=== PATIENT | male | born 1955 | race Caucasian/White ===

== ENCOUNTER → 2020-12-14 | Outpatient (CLI) | payer BC, MEDICARE, OTHER | LOC: LABNPT 08:34 | PROVIDERS: ATTEND Internal Medicine | DX: Z20.822 Contact with and (suspected) exposure to COVID-19 (principal) | CPT/HCPCS: 87636 ==

== ENCOUNTER → 2022-05-03 | Outpatient (CLI) | payer MEDICARE, BC ==
--- NOTE | 2022-05-03 17:56 | Diagnostic Imaging Report ---
INDICATION: Back pain and bruising status post fall. COMPARISON: None. FINDINGS: Frontal and lateral radiographic views of the lumbar spine were obtained and show no evidence acute fracture or dislocation. Static alignment is maintained. There is no significant anterolisthesis or retrolisthesis. There is no evidence of jumped facets. Vertebral body heights are preserved. There is no acute fracture. Mild multilevel degenerative changes are noted and consistent intervertebral disc height loss with endplate osteophyte formations and multilevel facet arthropathy. These changes appear greatest the L4-L5 and L5-S1 levels. No unexpected radiopaque foreign bodies are seen. IMPRESSION: 1. No acute fracture or dislocation in the lumbar spine. 2. Mild multilevel degenerative changes. Dictated by: Dictated on workstation # [id number]
== END ==
LOC: RAD 15:30
PROVIDERS: ATTEND Physician Assistant
DX: M47.816 Spondylosis without myelopathy or radiculopathy, lumbar region (principal); T14.8XXA Other injury of unspecified body region, initial encounter; W19.XXXD Unspecified fall, subsequent encounter
CPT/HCPCS: 72100

== ENCOUNTER 2022-07-06 05:33 | Outpatient (CLI) | payer MEDICARE, BC ==
[~2022-07-06] VITALS: Ht 188 cm; Wt 101.5 kg
[2022-07-07] MEDS ORDERED: LEVO75CA5 PO (12:43)
== END 2022-07-07 12:49 | disposition home or self-care (01) ==
LOC: PREOP 05:33
PROVIDERS: ATTEND Surgery
DX: Z01.818 Encounter for other preprocedural examination (principal)

== ENCOUNTER 2022-07-19 07:14 | Day surgery (SDC) | payer MEDICARE, BC ==
[~2022-07-19] VITALS: Ht 188 cm; Wt 101.5 kg
[~2022-07-19 07:14] MED LIST: LEVO75CA5 PO
[2022-07-19] MEDS ORDERED: LACTATED RINGERS 1,000 ML IV STA (07:23)
[2022-07-19 07:30] VITALS: BP 129/73
[2022-07-19] MEDS ORDERED: PROPOFOL INJECTION 50 ML IV ONE (08:09)
[2022-07-19 08:42] VITALS: BP 112/66
--- NOTE | 2022-07-19 08:43 | Discharge Inst-Simple/Standard ---
Discharge Inst-Standard Patient Instructions/Follow Up Plan of Care/Instructions/FU: 2 weeks del Activity as Tolerated: Yes Discharge Diet: Regular Diet DANIEL MURDOCK DO Jul 19, 2022 08:43
[2022-07-19 08:46] VITALS: BP 118/67
[2022-07-19 08:50] VITALS: BP_SYST 114; BP_SYST 116; BP_DIAS 70; BP_DIAS 72
[2022-07-19 09:15] VITALS: BP 114/70
--- NOTE | 2022-07-19 09:22 | Progress Note-Post Operative ---
Post-Operative Progess Note Surgeon (s)/Director Of Marketing Analytics (s) Surgeon DANIEL MURDOCK DO Director Of Marketing Analytics: N/A Pre-Operative Diagnosis Hx Colon Polyps Post-Operative Diagnosis Colon Polyps Procedure & Operative Findings Date of Procedure 07/19/22 Procedure Performed/Findings Colonoscopy w/ hot bx polypectomy x3 Anesthesia Type Per AIR [employer]FFIC SYSTEMS TECHNICIAN Estimated Blood Loss Estimated blood loss (mL): None Specimens/Packing Specimens Removed Colon Polyps DANIEL MURDOCK DO Jul 19, 2022 09:22
--- NOTE | 2022-07-19 09:38 | Anesthesia-General Post-Op ---
MAC Patient Condition Mental Status/LOC: Same as Preop Cardiovascular: Satisfactory Nausea/Vomiting: Absent Respiratory: Satisfactory Pain: Controlled Complications: Absent Post Op Complications Complications None Follow Up Care/Instructions Patient Instructions None needed. Anesthesiology Discharge Order Discharge Order Patient is doing well, no complaints, stable vital signs, no apparent adverse anesthesia problems. No complications reported per nursing. ANDERSON TORO CRNA Jul 19, 2022 09:38
--- NOTE | 2022-07-19 12:35 | OPERATIVE REPORT ---
DATE OF SERVICE: 07/19/2022 PREOPERATIVE DIAGNOSIS: History of polyps. POSTOPERATIVE DIAGNOSES: Colon polyps. PROCEDURE: Colonoscopy with hot biopsy polypectomy x3. SURGEON: Daniel Mcneal DO ANESTHESIA: Per HAND LASTER. ESTIMATED BLOOD LOSS: None. COMPLICATIONS: None. INDICATIONS: The patient is a 67-year-old male with history of polyps. He understands risks and benefits of procedure and wished to proceed. Consent was signed in chart. DESCRIPTION OF PROCEDURE: The patient was taken to endoscopy suite, placed in left lateral recumbent position. Timeout was performed. Digital rectal exam was performed. No palpable polyps, masses or ulcerations. Scope was inserted in the rectum, advanced all the way to the cecum with minimal difficulty. Prep was adequate. Scope was then slowly retracted back. No polyps, masses or ulcerations in the cecum and ascending colon. In the transverse colon, a small polyp was present, hot biopsy polypectomy was performed. Scope was then continuously retracted back. No polyps, masses or ulcerations with the remainder of the transverse and descending colon. In the sigmoid colon, 2 small polyps were present, which hot biopsy polypectomy was performed. Scope was then continuously retracted back into the rectum, where it was also retroflexed noting no other pathology. Scope was returned to its normal position, slowly withdrawn until completely removed. The patient tolerated the procedure well without any complications, taken to recovery in stable condition. RECOMMENDATIONS: The patient will repeat colonoscopy in 5 years. Any issues before that, be seen at that time. The patient will follow up in 2 weeks to discuss pathology results and see how he is doing. Job ID: [id number] DocumentID: [id number] Dictated Date: 07/19/2022 08:46:41 Car Wash Supervisor Date: 07/19/2022 12:33:00 Dictated By: DANIEL MCNEAL DO
== END 2022-07-19 09:24 | disposition home or self-care (01) ==
LOC: ENDO 07:14
PROVIDERS: ATTEND Surgery
DX: Z12.11 Encounter for screening for malignant neoplasm of colon (principal); D12.5 Benign neoplasm of sigmoid colon; K63.5 Polyp of colon; Z80.0 Family history of malignant neoplasm of digestive organs